=== PATIENT | female | born 1950 | race Caucasian/White ===

== ENCOUNTER 2018-04-14 12:50 | Inpatient (IN) ==
--- NOTE | 2018-04-14 13:58 | ED ---
HPI General Chief Complaint: Extremity Injury, Lower Stated Complaint: Fall Time Seen by Provider: 04/14/18 13:43 Source: patient and family Mode of arrival: wheelchair Limitations: no limitations History of Present Illness HPI Narrative: 68-year-old female presents the emergency room with her for evaluation of right groin pain for the past several days. Patient is a poor historian and her provides much of the history. He states 5 days ago she lost her balance and fell backwards landing right on her buttocks. She did not hit her head or lose consciousness. There were no other injuries. Patient was able to get up right away. States she seemed to be improving over the next few days but 2 days ago symptoms worsened. Today she was in the most amount of pain that she has been thus far. Her states he could barely get her out of the car without a wheelchair where she can typically walk with a walker around the grocery store. Patient reports pain localized to the right medial, proximal thigh that is worse with range of motion, ambulation, and when she pushes on it. No alleviating factors. Denies paresthesias. Patient only takes donepzil. complaint: Reports hip injury Onset (ago): day(s) Place: Reports home Severity: moderate Relieving factors: nothing Exacerbating factors: weight bearing, movement and palpation Context: Reports fall Other symptoms: Reports none Related Data Home Medications Medication Instructions Recorded Confirmed donepezil 10 mg PO DAILY 04/14/18 04/14/18 Allergies Allergy/AdvReac Type Severity Reaction Status Date / Time Penicillins Allergy Hives Verified 04/14/18 13:09 Review of Systems ROS: all other systems reviewed are negative [facility] Family History Family History Other Family history of breast cancer Hypertension Social History Social History Substance History: No History of Abuse Second Hand Smoke Exposure: No Smoking Status: Never smoker How Often Do You Have a Drink Containing Alcohol: Monthly or less Recent Travel in [facility] within the Last 8 Weeks: No Recent Out of Country Travel within the Last 8 Weeks: No Immunization History Tetanus Immunization: Unsure Exam Narrative Exam Narrative: GENERAL: Well-nourished, well-developed female no acute distress. Afebrile. SKIN: Focused skin assessment warm/dry. No obvious erythema or ecchymosis. HEAD: Normocephalic. EYES: No scleral icterus. No injection or drainage. NECK: Supple, trachea midline. No JVD or lymphadenopathy. CARDIOVASCULAR: Regular rate and rhythm without murmurs, gallops, or rubs. RESPIRATORY: Breath sounds equal bilaterally. No accessory muscle use. MUSCULOSKELETAL: No cyanosis, or edema. 2+ dorsalis pedis pulse on the right. No shortening or external rotation. Extreme pain with flexion and extension of the right hip. Tenderness palpation of the medial aspect of the right hip. Course Initial Documented Vital Signs Temperature 97.8 F 04/14/18 12:55 Pulse Rate 94 H 04/14/18 12:55 Respiratory Rate 20 04/14/18 12:55 Blood Pressure 156/64 H 04/14/18 12:55 Pulse Oximetry 97 04/14/18 12:55 Last Documented Vital Signs Temperature 98.3 F 04/15/18 16:00 Pulse Rate 70 04/15/18 12:00 Respiratory Rate 16 04/15/18 16:00 Blood Pressure 107/59 L 04/15/18 16:00 Pulse Oximetry 95 04/15/18 16:00 Medical Decision Making HAFSA Attestation HAFSA supervised visit: Yes Attestation: I, Dr. Wagner, have reviewed the advance practice practitioner's documentation and am in agreement, met with the patient face to face, made the diagnosis, and the medical decision making was done by me. *My assessment and Findings: Patient seen and examined by me in addition to Grecia Michelle, this 68-year-old female with subcapital femoral neck fracture with some mild impaction. I personally discussed the patient with Dr. Fraga, she would like to get a CAT scan to determine operative management whether that be minimally invasive fixation or hip replacement. Patient's pain seems fairly well controlled. Pulse motor and sensory are intact distally in all 4 extremities. She does have a history of dementia and is mildly confused. MDM Narrative Medical decision making narrative: 68-year-old female presents the emergency room with her for evaluation of right hip pain for the past 5 days after falling backwards on her buttocks. Patient has been ambulating on it but pain has been getting progressively worse over time. She denies any paresthesias. Physical exam reveals tenderness to palpation of the medial aspect of the right thigh. Pain is severe with any range of motion. There is no shortening or external rotation. 2+ dorsalis pedis pulse on the right. X- ray shows right subcapital femur neck fracture. My attending physician, Dr. Post, spoke to Dr. Fraga who plans to take patient to the OR for either pinning or total hip replacement. At this time IV access established and basic labs obtained. Preop EKG and chest x-ray ordered. Basic labs are essentially unremarkable. I spoke to Dr. Ortiz who agrees to accept this patient to his service. Medical Screen Exam Complete: Yes Emergency Medical Condition: Yes Differential Diagnosis Differential Diagnosis: Fracture, strain, contusion, muscle spasm Lab Data Result diagrams: 04/15/18 08:04 04/15/18 08:04 Lab Results 04/14/18 04/14/18 04/14/18 Range/Units 15:27 15:27 15:27 WBC 13.7 H (4.0-11.0) th/mm3 RBC 4.15 (4.00-5.30) mil/mm3 Hgb 13.4 (11.6-15.3) gm/dL Hct 38.4 (35.0-46.0) % MCV 92.6 (80.0-100.0) fL MCH 32.2 (27.0-34.0) pg MCHC 34.8 (32.0-36.0) % RDW 12.9 (11.6-17.2) % Plt Count 283 (150-450) th/mm3 MPV 8.3 (7.0-11.0) fL Neut % (Auto) 80.2 H (16.0-70.0) % Lymph % (Auto) 7.6 L (9.0-44.0) % Gem % (Auto) 11.9 H (0.0-8.0) % Eos % (Auto) 0.1 (0.0-4.0) % Baso % (Auto) 0.2 (0.0-2.0) % Neut # (Auto) 11.0 H (1.8-7.7) th/mm3 Lymph # (Auto) 1.0 (1.0-4.8) th/mm3 Gem # (Auto) 1.6 H (0.0-0.9) th/mm3 Eos # (Auto) 0.0 (0.0-0.4) th/mm3 Baso # (Auto) 0.0 (0.0-0.2) th/mm3 WBC Differential . Differential Comment Auto diff final PT 10.7 (9.8-11.6) sec INR 1.1 Ratio APTT 24.8 (23.4-31.7) sec Sodium 141 (136-145) meq/L Potassium 4.0 (3.5-5.1) meq/L Chloride 106 (98-107) meq/L Carbon Dioxide 28.6 (21.0-32.0) meq/L Anion Gap 6 (5-15) meq/L BUN 17 (7-18) mg/dL Creatinine 0.68 (0.50-1.00) mg/dL Estimated GFR 86 L (>89) mL/min Random Glucose 110 H (74-106) mg/dL Calcium 9.4 (8.5-10.1) mg/dL Total Bilirubin 1.3 H (0.2-1.0) mg/dL AST 22 (15-37) U/L ALT 18 (10-53) U/L Alkaline Phosphatase 51 (45-117) U/L Total Protein 7.6 (6.4-8.2) g/dL Albumin 3.6 (3.4-5.0) g/dL Urine Color (Yellw/Straw) Urine Clarity (Clear) Urine pH (5.0-8.5) Ur Specific Elysian (1.002-1.035) Urine Protein (Neg-Trace) mg/dL Urine Glucose (UA) (Negative) mg/dL Urine Ketones (Negative) mg/dL Urine Occult Blood (Negative) Urine Nitrate (Negative) Urine Bilirubin (Negative) Urine Urobilinogen (Less than 2) mg/dL Ur Leukocyte Esterase (Negative) Urine RBC (0-3) /hpf Urine WBC (0-5) /hpf Urine Mucus (Occasional) /lpf Ur Microscopic Review 04/14/18 04/15/18 04/15/18 Range/Units 15:28 08:04 08:04 WBC 9.6 (4.0-11.0) th/mm3 RBC 4.14 (4.00-5.30) mil/mm3 Hgb 13.3 (11.6-15.3) gm/dL Hct 38.2 (35.0-46.0) % MCV 92.3 (80.0-100.0) fL MCH 32.1 (27.0-34.0) pg MCHC 34.7 (32.0-36.0) % RDW 13.0 (11.6-17.2) % Plt Count 294 (150-450) th/mm3 MPV 8.3 (7.0-11.0) fL Neut % (Auto) 69.0 (16.0-70.0) % Lymph % (Auto) 14.0 (9.0-44.0) % Gem % (Auto) 14.9 H (0.0-8.0) % Eos % (Auto) 1.7 (0.0-4.0) % Baso % (Auto) 0.4 (0.0-2.0) % Neut # (Auto) 6.6 (1.8-7.7) th/mm3 Lymph # (Auto) 1.3 (1.0-4.8) th/mm3 Gem # (Auto) 1.4 H (0.0-0.9) th/mm3 Eos # (Auto) 0.2 (0.0-0.4) th/mm3 Baso # (Auto) 0.0 (0.0-0.2) th/mm3 WBC Differential . Differential Comment Auto diff final PT (9.8-11.6) sec INR Ratio APTT (23.4-31.7) sec Sodium 141 (136-145) meq/L Potassium 3.8 (3.5-5.1) meq/L Chloride 105 (98-107) meq/L Carbon Dioxide 28.4 (21.0-32.0) meq/L Anion Gap 8 (5-15) meq/L BUN 16 (7-18) mg/dL Creatinine 0.70 (0.50-1.00) mg/dL Estimated GFR 83 L (>89) mL/min Random Glucose 97 (74-106) mg/dL Calcium 8.8 (8.5-10.1) mg/dL Total Bilirubin (0.2-1.0) mg/dL AST (15-37) U/L ALT (10-53) U/L Alkaline Phosphatase (45-117) U/L Total Protein (6.4-8.2) g/dL Albumin (3.4-5.0) g/dL Urine Color Straw (Yellw/Straw) Urine Clarity Clear (Clear) Urine pH 6.0 (5.0-8.5) Ur Specific Elysian 1.005 (1.002-1.035) Urine Protein Negative (Neg-Trace) mg/dL Urine Glucose (UA) Negative (Negative) mg/dL Urine Ketones Trace H (Negative) mg/dL Urine Occult Blood Small H (Negative) Urine Nitrate Negative (Negative) Urine Bilirubin Negative (Negative) Urine Urobilinogen Less than 2 (Less than 2) mg/dL Ur Leukocyte Esterase Negative (Negative) Urine RBC 1 (0-3) /hpf Urine WBC Less than 1 (0-5) /hpf Urine Mucus Few H (Occasional) /lpf Ur Microscopic Review Not Reportable Imaging Data Radiologist's impression: Hip CT 04/14/18 00:00 CONCLUSION: 1. Impacted subcapital right femoral neck fracture. 2. 2.7 cm right adnexal cystic lesion, likely ovarian in etiology. This can be further evaluated with ultrasound on an outpatient basis as clinically appropriate. Hip X-Ray 04/14/18 13:51 CONCLUSION: Right subcapital femoral neck fracture. Chest X-Ray 04/14/18 15:14 CONCLUSION: No significant change compared to 07/21/2016. Hip X-Ray 04/15/18 00:00 CONCLUSION: Successful ORIF. Discharge Plan Discharge Disposition Patient Disposition: ED Admit(ED Internal Use Only) Discharge Order Discharge Orders: ED Use Only Admit Order (Routine); Ordered 04/14/18 Ordered By: Grecia Michelle Physicians Team ED Provider: Venkata Post ED Midlevel Provider: Grecia Michelle Primary Care Provider: Tonya Ruiz Attending Provider: Liya Polanco Other Providers: Jade Fraga Status ED Status: Left Department Discharge Information Discharge Date/Time: 04/14/18 19:01
--- NOTE | 2018-04-14 14:51 | XR ---
EXAM DATE: 04/14/2018 2:18 PM EST AGE/SEX: 68 years / Female INDICATIONS: Right hip pain, post fall. CLINICAL DATA: This is the patient's initial encounter. Patient reports that signs and symptoms have been present for 1 day and indicates a pain score of 7/10. MEDICAL/SURGICAL HISTORY: None. None. COMPARISON: No prior exams available for comparison. FINDINGS: There is a subcapital right femoral neck fracture. The femoral head is normally positioned in the jose francisco tabulum. No other fracture is seen. CONCLUSION: Right subcapital femoral neck fracture. Electronically signed by: Lon Oneil MD Board Certified Radiologist 04/14/2018 2:49 PM EST
[2018-04-14] MEDS ORDERED: Morphine Inj 4 MG/ML Vial IV.PUSH ONE (15:14)
[2018-04-14 15:54] LABS: Baso % (Auto) 0.2 % (0.0-2.0); Eos % (Auto) 0.1 % (0.0-4.0); Hematocrit 38.4 % (35.0-46.0); Hemoglobin 13.4 gm/dL (11.6-15.3); Lymph % (Auto) 7.6 % (9.0-44.0); Mean Corpuscular HGB Conc 34.8 % (32.0-36.0); Mean Corpuscular Hemoglobin 32.2 pg (27.0-34.0); Mean Corpuscular Volume 92.6 fL (80.0-100.0); Mean Platelet Volume 8.3 fL (7.0-11.0); Mono # (Auto) 1.6 th/mm3 (0.0-0.9); Mono % (Auto) 11.9 % (0.0-8.0); Neut % (Auto) 80.2 % (16.0-70.0); Platelet Count 283 th/mm3 (150-450); Red Blood Count 4.15 mil/mm3 (4.00-5.30); Red Cell Distribution Width 12.9 % (11.6-17.2); White Blood Count 13.7 th/mm3 (4.0-11.0)
[2018-04-14 16:01] LABS: Bilirubin,Urine Negative (Negative); Clarity,Urine Clear (Clear); Color,Urine Straw (Yellw/Straw); Glucose,Urine (UA) Negative (Negative); Leukocyte Esterase,Urine Negative (Negative); Mucus,Urine Few /lpf (Occasional); Nitrite,Urine Negative (Negative); Specific Gravity,Urine 1.005 (1.002-1.035)
[2018-04-14 16:07] LABS: Activated Partial Thrombo Time 24.8 sec (23.4-31.7); INR 1.1 Ratio; Prothrombin Time 10.7 sec (9.8-11.6)
--- NOTE | 2018-04-14 16:07 | XR ---
EXAM DATE: 04/14/2018 3:50 PM EST AGE/SEX: 68 years / Female INDICATIONS: History of fall, no chest complaints. CLINICAL DATA: This is the patient's initial encounter. Patient reports that signs and symptoms have been present for 1 day and indicates a pain score of 0/10. MEDICAL/SURGICAL HISTORY: None. None. COMPARISON: POI, XR CHEST PA AND LAT, 07/21/2016. . FINDINGS: The heart and mediastinal structures are stable. The lungs are hyperaerated. Increased interstitial d isease is noted bilaterally and is chronic. No focal alveolar consolidation is noted. Old healed frac tures of the left rib cage are noted. There has been no significant change compared to 07/21/2016. CONCLUSION: No significant change compared to 07/21/2016. Electronically signed by: Venkata Patel MD Board Certified Radiologist 04/14/2018 4:06 PM EST
[2018-04-14 16:14] LABS: Albumin 3.6 g/dL (3.4-5.0); Anion Gap 6 meq/L (5-15); Aspartate Aminotransferase 22 U/L (15-37); Blood Urea Nitrogen 17 mg/dL (7-18); Calcium 9.4 mg/dL (8.5-10.1); Carbon Dioxide 28.6 meq/L (21.0-32.0); Chloride 106 meq/L (98-107); Glomerular Filtration Rate 86 mL/min (>89); Glucose,Random 110 mg/dL (74-106); Sodium 141 meq/L (136-145)
[2018-04-14 16:15] LABS: Alanine Aminotransferase 18 U/L (10-53)
[2018-04-14 16:17] LABS: Alkaline Phosphatase 51 U/L (45-117); Total Protein 7.6 g/dL (6.4-8.2)
--- NOTE | 2018-04-14 17:12 | CT ---
EXAM DATE: 04/14/2018 4:30 PM EST AGE/SEX: 68 years / Female INDICATIONS: Trauma. Right hip pain status post fall five days ago. CLINICAL DATA: This is the patient's initial encounter. Patient reports that signs and symptoms have been present for 1 day and indicates a pain score of Nonresponsive. MEDICAL/SURGICAL HISTORY: Non-responsive. Non-responsive. RADIATION DOSE: 16.32 CTDI (mGy) COMPARISON: No prior exams available for comparison. TECHNIQUE: Multiple contiguous axial images were acquired using a multirow detector CT scanner witho ut contrast. Multiplanar reconstruction was performed in the sagittal and coronal planes. Using aut omated exposure control and adjustment of the mA and/or kV according to patient size, radiation dose was kept as low as reasonably achievable to obtain optimal diagnostic quality images. DICOM format i mage data is available electronically for review and comparison. FINDINGS: Bones: CT examination confirms findings on radiographs of an impacted subcapital right femoral neck fracture. Remaining visualized osseous structures appear intact. Joints: No significant arthropathy. Mild degenerative changes of the visualized lower lumbar spine. Soft Tissues: Unremarkable for a non-contrast study. Other: Moderate to large amount of stool in the rectal vault. 2.7 cm right adnexal cystic lesion, li debra ovarian in etiology. Bladder is unremarkable. CONCLUSION: 1. Impacted subcapital right femoral neck fracture. 2. 2.7 cm right adnexal cystic lesion, likely ovarian in etiology. This can be further evaluated wit h ultrasound on an outpatient basis as clinically appropriate. Electronically signed by: Lebron Arias MD Board Certified Radiologist 04/14/2018 5:11 PM ANDREA Rodriguez
[2018-04-14] MEDS ORDERED: Bisacodyl 10 MG Supp RECTAL PRN (17:54)
[2018-04-14] MEDS ORDERED: Morphine Inj 4 MG/ML Vial IV.PUSH PRN (17:57)
--- NOTE | 2018-04-14 18:11 | P.HPIM ---
History of Present Illness Primary Care Physician: Tonya Ruiz MD Chief Complaint: Hip fracture History of Present Illness: 68-year-old female with history of Warnicke's encephalopathy and dementia. She fell approximately 1 week ago and had a difficult time getting up from a seated position following that. She has had pain in her right hip but was able to ambulate with the assistance of her walker , using a walker at baseline anyway. Her pain became increasingly worse in her disability became more prominent. Her brought her in for evaluation of her hip, x-ray here reveals that she has a fracture of her right hip. Orthopedics was made aware and plans to take her to the OR for repair. Her denies that she ever had any history of alcoholism, the Warnicke's encephalopathy is the best fitting diagnosis based on multiple visits with multiple neurologist. The etiology of how that occurred is unclear but it does contribute to her dementia. She was given donepezil by her neurologist to address the dementia. She has no complaints of fever, no cough, no urinary tract symptoms, no nausea, vomiting, or diarrhea. Inpatient Certification Inpatient Certification: I certify that the inpatient services were ordered in accordance with Medicare regulations governing the order. This includes certification that hospital inpatient services are reasonable and necessary and in the case of services not specified as inpatient-only under 42 CFR 419.22(n), that they are appropriately provided as inpatient services in accordance to with the 2-midnight benchmark under 43 CFR 412.3(e) Estimated Total Length of Stay (Days): 4 Plans for Post Hospital Care: SNF Review of Systems Review of Systems: all other systems reviewed are negative [facility] Medical History Medical History Dementia (Acute) Wernickes encephalopathy (Acute) Family History Family History Other Hypertension Social History Social History Substance History: No History of Abuse Second Hand Smoke Exposure: No Smoking Status: Never smoker How Often Do You Have a Drink Containing Alcohol: Never Recent Travel in [place] within the Last 8 Weeks: No Recent Out of Country Travel within the Last 8 Weeks: No Immunization History Tetanus Immunization: Unsure Medications and Allergies Allergies Allergy/AdvReac Type Severity Reaction Status Date / Time Penicillins Allergy Hives Verified 04/14/18 13:09 Home Medications Medication Instructions Recorded Confirmed Type donepezil 10 mg PO DAILY 04/14/18 04/14/18 History Active Medications: Active Medications Acetaminophen (Tylenol) 650 mg PO Q4H PRN PRN Reason: Temp > 100.4 Al Hydroxide/Mg Hydroxide (Milk Of Magnesia Liq) 30 ml PO Q12H PRN PRN Reason: Mild Constipation Bisacodyl (Dulcolax Supp) 10 mg RECTAL DAILY PRN PRN Reason: SEVERE CONSITIPATION Sodium Chloride (Ns Inj) 1,000 mls @ 42 mls/hr IV.CONT .[id number] CIARA Lactulose (Lactulose Liq) 30 ml PO DAILY PRN PRN Reason: SEVERE CONSITIPATION Morphine Sulfate (Morphine Inj) 2 mg IV.PUSH Q4H PRN PRN Reason: Acute Pain Ondansetron HCl (Zofran Inj) 4 mg IV.PUSH Q6H PRN PRN Reason: NAUSEA OR VOMITING Sennosides (Senokot) 17.2 mg PO Q12H PRN PRN Reason: Moderate Constipation Sodium Chloride (Ns Flush) 2 ml IV.FLUSH UNSCH PRN PRN Reason: FLUSH AFTER USING IV ACCESS Sodium Chloride (Ns Flush) 2 ml IV.FLUSH BID CIARA Sodium Chloride (Ns Flush) 2 ml IV.FLUSH PRN PRN PRN Reason: FLUSH AFTER USING IV ACCESS Physical Exam Vital signs: Last Vital Signs Temp 97.8 F 04/14/18 12:55 Pulse 86 04/14/18 17:43 Resp 18 04/14/18 17:43 BP 143/76 H 04/14/18 17:43 Pulse Ox 97 04/14/18 15:35 Intake & Output 04/12/18 04/13/18 04/14/18 04/15/18 06:59 06:59 06:59 06:59 Weight 58.967 kg Narrative: GENERAL: AAOx2, no acute distress, adequate nutrition, lying still under blankets pain controlled SKIN: Warm and dry, no rashes. HEAD: Atraumatic. Normocephalic. EYES: Pupils equal, round, reactive to light. No scleral icterus. No injection or drainage. ENT: No nasal bleeding or discharge. Moist mucous membranes. Nonerythematous oropharynx. NECK: Trachea midline. No JVD. Thyroid size within normal limits. CARDIOVASCULAR: Regular rate and rhythm. No murmur, no gallops, no rubs. RESPIRATORY: Clear and equal to auscultation bilaterally. No crackles, no wheezes. No accessory muscle use. GASTROINTESTINAL: Abdomen soft, non-tender, nondistended, normal active bowel sounds. Hepatic and splenic margins not palpable. MUSCULOSKELETAL: Pain in right hip extremities without clubbing or cyanosis. No obvious deformities. No edema. NEUROLOGICAL: Awake and alert. No obvious cranial nerve deficits. Motor grossly within normal limits. No focal deficits. Five out of 5 muscle strength in the arms and legs. Normal speech. PSYCHIATRIC: Appropriate mood and affect; insight and judgment normal. Results Labs CBC & Chem 7: 04/14/18 15:27 04/14/18 15:[address] 04/14/18 00:00 CONCLUSION: 1. Impacted subcapital right femoral neck fracture. 2. 2.7 cm right adnexal cystic lesion, likely ovarian in etiology. This can be further evaluated with ultrasound on an outpatient basis as clinically appropriate. Hip X-Ray 04/14/18 13:51 CONCLUSION: Right subcapital femoral neck fracture. Chest X-Ray 04/14/18 15:14 CONCLUSION: No significant change compared to 07/21/2016. Caprini VTE Risk Assessment Caprini VTE Risk Assessment: Moderate/High Risk (score >= 2) Caprini Risk Assessment Model: Point Value = 1 Point Value = 2 Point Value = 3 Point Value = 5 Age 41-60 Minor surgery BMI > 25 kg/m2 Swollen legs Varicose veins or History of unexplained or recurrent spontaneous Oral contraceptives or hormone replacement Sepsis (< 1 month) Serious lung disease, including pneumonia (< 1 month) Abnormal pulmonary function Acute myocardial infarction Congestive heart failure (< 1 month) History of inflammatory bowel disease Medical patient at bed rest Age 61-74 Arthroscopic surgery Major open surgery (> 45 min) Laparoscopic surgery (> 45 min) Malignancy Confined to bed (> 72 hours) Immobilizing plaster cast Central venous access Age >= 75 History of VTE Family history of VTE Factor V Leiden Prothrombin [id number] Lupus anticoagulant Anticardiolipin antibodies Elevated serum homocysteine Heparin-induced thrombocytopenia Other congenital or acquired thrombophilia Stroke (< 1 month) Elective arthroplasty Hip, pelvis, or leg fracture Acute spinal cord injury (< 1 month) Prophylaxis Regimen: Total Risk Factor Score Risk Level Prophylaxis Regimen 0-1 Low Early ambulation 2 Moderate Order ONE of the following: *Sequential Compression Device (SCD) *Heparin 5000 units SQ BID 3-4 Higher Order ONE of the following medications: *Heparin 5000 units SQ TID *Enoxaparin/Lovenox 40 mg SQ daily (WT < 150 kg, CrCl > 30 mL/min) *Enoxaparin/Lovenox 30 mg SQ daily (WT < 150 kg, CrCl > 10-29 mL/min) *Enoxaparin/Lovenox 30 mg SQ BID (WT < 150 kg, CrCl > 30 mL/min) AND/OR *Sequential Compression Device (SCD) 5 or more Highest Order ONE of the following medications: *Heparin 5000 units SQ TID (Preferred with Epidurals) *Enoxaparin/Lovenox 40 mg SQ daily (WT < 150 kg, CrCl > 30 mL/min) *Enoxaparin/Lovenox 30 mg SQ daily (WT < 150 kg, CrCl > 10-29 mL/min) *Enoxaparin/Lovenox 30 mg SQ BID (WT < 150 kg, CrCl > 30 mL/min) AND *Sequential Compression Device (SCD) Assessment and Plan Plan Right hip fracture Right subcapital femoral neck fracture Orthopedics is aware and plans to repair with surgery Continue morphine 2 mg as needed for pain control N.p.o. after midnight Appreciate orthopedics consult Warnicke's encephalopathy Best fitting diagnosis, there is no history of alcoholism Possibly related to be vitamin absorption deficiency from GI or robbie imbalance Continue multivitamin daily, thiamine Dementia Secondary to decline from Warnicke's encephalopathy Continue donepezil 10 mg daily DVT prophylaxis SCDs, surgery in the a.m. Discharge planning She will likely need a rehab center
[2018-04-14] MEDS: Sod Chloride 0.9% Inj 1,000 ML IV.CONT SCH (18:37)
[2018-04-14] MEDS ORDERED: Chlorhexidine Gluconate 2% 1 Pack (2 Cloths) TOPICAL ONE (23:00)
[2018-04-14] MEDS ORDERED: Sodium Chlor 0.9% Inj 500 ML IV.CONT ONE (23:00)
--- NOTE | 2018-04-15 06:44 | P.CONOP ---
[facility] Orthopedics Consult Note - [facility] Consult date: 04/15/18 Chief complaint: Right femoral neck fx Narrative: 68-year-old female with history of Warnicke's encephalopathy and dementia. She fell approximately 1 week ago and had a difficult time getting up from a seated position following that. She has had pain in her right hip but was able to ambulate with the assistance of her walker, using a walker at baseline anyway. Her pain became increasingly worse in her disability became more prominent. Her brought her in for evaluation of her hip, x-ray here reveals that she has a fracture of her right hip. Orthopedics was made aware and plans to take her to the OR for repair. Her denies that she ever had any history of alcoholism, the Warnicke's encephalopathy is the best fitting diagnosis based on multiple visits with multiple neurologist. The etiology of how that occurred is unclear but it does contribute to her dementia. She was given donepezil by her neurologist to address the dementia. She has no complaints of fever, no cough, no urinary tract symptoms, no nausea, vomiting, or diarrhea. Currently she only complains of right hip pain otherwise doing well. Review of Systems Denies fevers, chills, nausea, vomiting. Denies chest pain, cough, shortness of breath. Denies abdominal pain or change in urination. Denies back pain, weakness, numbness or tingling. Denies dizziness, blurry vision or throat pain. Reports baseline dementia. Reports right hip pain PMFSH - History History Provided By: Patient - Medical History Medical History: Medical History (Last Reviewed 04/14/18 @ 20:12 by Ailyn Rubalcava RN) Dementia Wernickes encephalopathy - Surgical History Surgical History: Surgical History (Last Updated 04/14/18 @ 20:12 by Ailyn Rubalcava RN) No history of previous surgery - Family History Family History: Family History (Last Updated 04/14/18 @ 20:13 by Ailyn Rubalcava RN) Other Family history of breast cancer Hypertension - Tobacco History Second Hand Smoke Exposure: No Tobacco Use In Past 30 Days: No Smoking Status: Never smoker - Alcohol History How Often Do You Have a Drink Containing Alcohol: Monthly or less - Substance Use History Substance History: No History of Abuse - Travel History Recent Travel in the [place] Within the Last 8 Weeks: No Recent Travel Out of the Country Within the Last 8 Weeks: No - Immunization History Tetanus Immunization: Unsure Hx Influenza Vaccine This Season: Yes Medications and Allergies Active Medications: Active Medications Acetaminophen (Tylenol) 650 mg PO Q4H PRN PRN Reason: Temp > 100.4 Al Hydroxide/Mg Hydroxide (Milk Of Magnesia Liq) 30 ml PO Q12H PRN PRN Reason: Mild Constipation Bisacodyl (Dulcolax Supp) 10 mg RECTAL DAILY PRN PRN Reason: SEVERE CONSITIPATION Donepezil HCl (Aricept) 10 mg PO DAILY [facility] Sodium Chloride (Ns Inj) 1,000 mls @ 42 mls/hr IV.CONT .[id number] [facility] Last Admin: 04/14/18 18:37 Dose: 42 mls/hr Lactated Ringer's (Lr 1000 Ml Inj) 1,000 mls @ 30 mls/hr IV.CONT .Q24H ONE Stop: 04/15/18 22:59 Sodium Chloride (Ns Inj) 500 mls @ 30 mls/hr IV.CONT .[id number] ONE Stop: 04/15/18 15:39 Lactulose (Lactulose Liq) 30 ml PO DAILY PRN PRN Reason: SEVERE CONSITIPATION Morphine Sulfate (Morphine Inj) 2 mg IV.PUSH Q4H PRN PRN Reason: Acute Pain Multivitamins (Theragran) 1 tab PO DAILY [facility] Ondansetron HCl (Zofran Inj) 4 mg IV.PUSH Q6H PRN PRN Reason: NAUSEA OR VOMITING Sennosides (Senokot) 17.2 mg PO Q12H PRN PRN Reason: Moderate Constipation Sodium Chloride (Ns Flush) 2 ml IV.FLUSH BID [facility] Last Admin: 04/14/18 20:21 Dose: Not Given Sodium Chloride (Ns Flush) 2 ml IV.FLUSH PRN PRN PRN Reason: FLUSH AFTER USING IV ACCESS Thiamine HCl (Vitamin B1) 100 mg PO BID [facility] Last Admin: 04/14/18 20:21 Dose: 100 mg Allergies Allergy/AdvReac Type Severity Reaction Status Date / Time Penicillins Allergy Hives Verified 04/14/18 13:09 Home Medications Medication Instructions Recorded Confirmed Type donepezil 10 mg PO DAILY 04/14/18 04/14/18 History Exam Vital signs: Vital Signs 04/14/18 12:55 04/14/18 15:35 04/14/18 15:47 Temperature 97.8 F Pulse Rate 94 H 78 Respiratory Rate 20 18 18 Blood Pressure 156/64 H 154/67 H Pulse Oximetry 97 97 04/14/18 17:43 04/14/18 18:33 04/14/18 19:20 Temperature 98 F Pulse Rate 86 70 75 Respiratory Rate 18 18 18 Blood Pressure 143/76 H 120/55 L 136/64 Pulse Oximetry 96 95 04/14/18 23:32 04/15/18 03:55 Temperature 97.7 F 97.9 F Pulse Rate 81 81 Respiratory Rate 18 Blood Pressure 121/56 L 124/54 L Pulse Oximetry 94 L 94 L Intake & Output 04/14/18 04/14/18 04/15/18 06:59 18:59 06:59 Intake Total 0 / 0 Balance 0 / 0 Weight 58.967 kg 59.1 kg Intake: Oral 0 / 0 Other: # Voids 1 Date of Last Bowel Movement 04/14/18 # Bowel Movements 0 Weight On Admission 59.1 kg Narrative: Awake, alert, no acute distress Normocephalic Pupils equal No JVD Moist mucous membranes Nonlabored respirations Soft nontender abdomen Regular rate Right upper extremity: No tenderness to palpation or visible deformities. Full active range of motion and strength throughout. Sensation intact. Brisk cap refill. Left upper extremity:No tenderness to palpation or visible deformities. Full active range of motion and strength throughout. Sensation intact. Brisk cap refill. Right lower extremity: Positive logroll. Unable to assess hip and knee range of motion due to discomfort. Positive EHL, FHL, dorsiflexion and plantar flexion. Sensation appears intact. Negative Homans. Brisk cap refill. Left lower extremity:No tenderness to palpation or visible deformities. Full active range of motion and strength throughout. Sensation intact. Brisk cap refill. No rash Normal affect Results - Labs Result Diagrams: 04/14/18 15:27 04/14/18 15:27 Labs: Laboratory Results - last 24 hr 04/14/18 04/14/18 04/14/18 15:27 15:27 15:27 WBC 13.7 H RBC 4.15 Hgb 13.4 Hct 38.4 MCV 92.6 MCH 32.2 MCHC 34.8 RDW 12.9 Plt Count 283 MPV 8.3 Neut % (Auto) 80.2 H Lymph % (Auto) 7.6 L [place] % (Auto) 11.9 H Eos % (Auto) 0.1 Baso % (Auto) 0.2 Neut # (Auto) 11.0 H Lymph # (Auto) 1.0 [place] # (Auto) 1.6 H Eos # (Auto) 0.0 Baso # (Auto) 0.0 WBC Differential . Differential Comment Auto diff final PT 10.7 INR 1.1 APTT 24.8 Sodium 141 Potassium 4.0 Chloride 106 Carbon Dioxide 28.6 Anion Gap 6 BUN 17 Creatinine 0.68 Estimated GFR 86 L Random Glucose 110 H Calcium 9.4 Total Bilirubin 1.3 H AST 22 ALT 18 Alkaline Phosphatase 51 Total Protein 7.6 Albumin 3.6 Urine Color Urine Clarity Urine pH Ur Specific [place] Urine Protein Urine Glucose (UA) Urine Ketones Urine Occult Blood Urine Nitrate Urine Bilirubin Urine Urobilinogen Ur Leukocyte Esterase Urine RBC Urine WBC Urine Mucus Ur Microscopic Review 04/14/18 15:28 WBC RBC Hgb Hct MCV MCH MCHC RDW Plt Count MPV Neut % (Auto) Lymph % (Auto) [place] % (Auto) Eos % (Auto) Baso % (Auto) Neut # (Auto) Lymph # (Auto) [place] # (Auto) Eos # (Auto) Baso # (Auto) WBC Differential Differential Comment PT INR APTT Sodium Potassium Chloride Carbon Dioxide Anion Gap BUN Creatinine Estimated GFR Random Glucose Calcium Total Bilirubin AST ALT Alkaline Phosphatase Total Protein Albumin Urine Color Straw Urine Clarity Clear Urine pH 6.0 Ur Specific [place] 1.005 Urine Protein Negative Urine Glucose (UA) Negative Urine Ketones Trace H Urine Occult Blood Small H Urine Nitrate Negative Urine Bilirubin Negative Urine Urobilinogen Less than 2 Ur Leukocyte Esterase Negative Urine RBC 1 Urine WBC Less than 1 Urine Mucus Few H Ur Microscopic Review Not Reportable - Diagnostic results Imaging: Impressions Hip CT 04/14/18 00:00 CONCLUSION: 1. Impacted subcapital right femoral neck fracture. 2. 2.7 cm right adnexal cystic lesion, likely ovarian in etiology. This can be further evaluated with ultrasound on an outpatient basis as clinically appropriate. Hip X-Ray 04/14/18 13:51 CONCLUSION: Right subcapital femoral neck fracture. Chest X-Ray 04/14/18 15:14 CONCLUSION: No significant change compared to 07/21/2016. Assessment and Plan - Assessment and Plan 68-year-old female with closed impacted right subcapital femoral neck fracture Radiographs and CT scan reviewed by myself and with the patient. She does have a right femoral neck fracture which appears valgus impacted. I discussed options of management with the patient. I explained to the patient that nonoperative management is typically not a reliable option as it predisposes the patient to prolonged periods in bed and places her at risk for pneumonias, blood clots, urinary tract infections, skin breakdown leading to ulcers and even . Typically surgery is used to try to fix these fractures. I discussed surgery in the form of percutaneous fixation of her right femoral neck fracture versus right hip hemiarthroplasty. Risks, benefits, alternatives were discussed with the patient regarding both of the surgical options. I explained to the patient that typically with percutaneous fixation there is higher risk of nonunion or hardware failure which could require further surgery although this surgery initially is much smaller with lower risk of blood loss. Patient is interested in pursuing percutaneous fixation of her right hip fracture. Patient has been n.p.o. since midnight with plan for surgery this morning. Postoperative course was discussed with the patient. She will be limited weightbearing for at least the first several weeks postoperatively.
[2018-04-15] MEDS ORDERED: ceFAZolin 1 GM Premix Inj 1 GM/50 ML PIGGYBACK IV.SIG ONE (08:31)
[2018-04-15 08:44] LABS: Baso % (Auto) 0.4 % (0.0-2.0); Eos # (Auto) 0.2 th/mm3 (0.0-0.4); Eos % (Auto) 1.7 % (0.0-4.0); Hematocrit 38.2 % (35.0-46.0); Hemoglobin 13.3 gm/dL (11.6-15.3); Lymph # (Auto) 1.3 th/mm3 (1.0-4.8); Mean Corpuscular HGB Conc 34.7 % (32.0-36.0); Mean Corpuscular Hemoglobin 32.1 pg (27.0-34.0); Mean Corpuscular Volume 92.3 fL (80.0-100.0); Mean Platelet Volume 8.3 fL (7.0-11.0); Mono # (Auto) 1.4 th/mm3 (0.0-0.9); Mono % (Auto) 14.9 % (0.0-8.0); Neut # (Auto) 6.6 th/mm3 (1.8-7.7); Platelet Count 294 th/mm3 (150-450); Red Blood Count 4.14 mil/mm3 (4.00-5.30); White Blood Count 9.6 th/mm3 (4.0-11.0)
[2018-04-15 09:00] LABS: Calcium 8.8 mg/dL (8.5-10.1); Carbon Dioxide 28.4 meq/L (21.0-32.0); Potassium 3.8 meq/L (3.5-5.1)
--- NOTE | 2018-04-15 09:22 | P.OP ---
Date of procedure: 04/15/18 Procedure: Percutaneous fixation right femoral neck fracture Implants: Synthes 7.3mm cannulated screws Anesthesia: GETA Surgeon: Jade Fraga MD Estimated blood loss (mL): 10 Pathology: none sent Operation and Findings: Indications for procedure: Patient is a 68-year-old female who had a fall approximately 1 week prior to presentation with acute onset of right hip pain but patient was initially able to ambulate. Over the last week she is noticed progressing difficulty with ambulation. Patient was found to have a closed right impacted femoral neck fracture. Options of management reviewed with the patient and her . Risks, benefits, and alternatives were reviewed. Risks of surgery were discussed. At this time the patient and her consented to the above-mentioned procedure. Description of procedure: Patient was brought back to the operating room where general anesthesia then ensued. Patient was then carefully positioned supine on the operating room fracture table with all bony promises well-padded. Antibiotics were given within 1 hour of incision. A timeout was performed to addendum for the correct patient, side, site and procedure to be performed. The femoral neck fracture was found to be impacted and within acceptable alignment with slight valgus angulation. A small incision was made over the proximal lateral aspect of the femur with sharp dissection through the skin, subcutaneous tissue and fascia. A guidewire was placed just proximal to the lesser trochanter on the lateral aspect of the femur and advanced through the center of the femoral neck in the inferior aspect and into the femoral head. 2 more guidewires were 7.3 mm cannulated screws were then placed more proximally with one being in the posterior aspect of the femoral neck and one in the anterior aspect of the femoral neck. These were advanced into the femoral head in appropriate position. These were subsequently directed, the near cortex drilled and appropriately length of 7.3 mm cannulated screw placed over each of the guidewires. These were final tightened. The guidewires were removed. Final radiographs demonstrated the fracture was in acceptable alignment and hardware was in good position. The wound was thoroughly irrigated with normal saline laden with antibiotics. The fascia was closed with Vicryl sutures along with his obtain his tissue. The skin was then closed with tsering and sterile dressings applied. Patient was then carefully transitioned off of the operating room fracture table and onto her hospital bed. Patient was awoken from general anesthesia without complication. Disposition: Patient will be toe-touch weightbearing to the right lower extremity.
[2018-04-15] MEDS ORDERED: Post-op Orders (for Pharmacy) OTHER STA (09:23)
[2018-04-15] MEDS ORDERED: fentaNYL Citrate Inj 100 MCG/2 ML Ampul ONE (09:44)
[2018-04-15] MEDS ORDERED: Morphine Inj 4 MG/ML Vial ONE (09:44)
--- NOTE | 2018-04-15 09:53 | XR ---
EXAM DATE: 04/15/2018 9:39 AM EST AGE/SEX: 68 years / Female INDICATIONS: Right hip pinning. CLINICAL DATA: This is the patient's initial encounter. Patient reports that signs and symptoms have been present for 1 day and indicates a pain score of Nonresponsive. MEDICAL/SURGICAL HISTORY: Non-responsive. Non-responsive. COMPARISON: C, HIP RIGHT W AP PELVIS 2V, 04/14/2018. . FINDINGS: 2 images from the OR have been submitted. There are 3 screws extending through the right femoral neck and into the right femoral head. These are well placed. The previously seen right femoral neck fract ure has been successfully reduced. CONCLUSION: Successful ORIF. Electronically signed by: Lon Oneil MD Board Certified Radiologist 04/15/2018 9:52 AM EST
--- NOTE | 2018-04-15 15:26 | P.PN ---
Subjective Interval history: Follow-up visit for right hip fracture. Patient is seen and examined sitting up in bed eating with at bedside. She denies any pain at the moment. Denies any cough, shortness of breath, nausea or vomiting. Discussed with she will likely need rehab, will touch base with showcase maker for list of rehab centers to plan for discharge. Physical Exam Vital signs: Vital Signs 04/14/18 15:35 04/14/18 15:47 04/14/18 17:43 Temperature Pulse Rate 78 86 Respiratory Rate 18 18 18 Blood Pressure 154/67 H 143/76 H Pulse Oximetry 97 04/14/18 18:33 04/14/18 19:20 04/14/18 23:32 Temperature 98 F 97.7 F Pulse Rate 70 75 81 Respiratory Rate 18 18 18 Blood Pressure 120/55 L 136/64 121/56 L Pulse Oximetry 96 95 94 L 04/15/18 03:55 04/15/18 08:00 04/15/18 09:30 Temperature 97.9 F 99 F Pulse Rate 81 80 71 Respiratory Rate 18 16 12 Blood Pressure 124/54 L 120/58 L Pulse Oximetry 94 L 97 100 04/15/18 09:31 04/15/18 12:00 Temperature 98.9 F 97.6 F Pulse Rate 70 70 Respiratory Rate 12 16 Blood Pressure 115/54 L 112/57 L Pulse Oximetry 100 96 Intake & Output 04/14/18 04/15/18 04/15/18 18:59 06:59 18:59 Intake Total 0 / 0 1000 / 1000 Output Total 150 / 150 Balance 0 / 0 850 / 850 Weight 58.967 kg 59.1 kg Intake: Oral 0 / 0 Anesthesia Amount 1000 / 1000 Output: Estimated Blood Loss 150 / 150 Other: # Voids 1 Date of Last Bowel Movement 04/14/18 # Bowel Movements 0 Weight On Admission 59.1 kg Narrative: GENERAL: Well-developed, well-nourished female sitting up in bed in no acute distress. SKIN: Warm and dry. HEAD: Atraumatic. Normocephalic. EYES: Pupils equal and round. No scleral icterus. No injection or drainage. ENT: No nasal bleeding or discharge. Mucous membranes pink and moist. NECK: Trachea midline. No JVD. CARDIOVASCULAR: Regular rate and rhythm. RESPIRATORY: No accessory muscle use. Clear to auscultation. Breath sounds equal bilaterally. GASTROINTESTINAL: Abdomen soft, non-tender, nondistended. + Bowel sounds MUSCULOSKELETAL: Extremities without clubbing, cyanosis, or edema. No obvious deformities. Right hip dressing dry and intact. Right pedal pulse present, foot warm, positive sensation and movement. NEUROLOGICAL: Awake, alert, oriented x1. No obvious cranial nerve deficits. Motor grossly within normal limits. 4/5 muscle strength in the arms and legs. Normal speech. PSYCHIATRIC: poor insight and judgment. Results - Labs CBC & Chem 7: 04/15/18 08:04 04/15/18 08:04 Laboratory Results - last 24 hr 04/14/18 04/14/18 04/14/18 15:27 15:27 15:27 WBC 13.7 H RBC 4.15 Hgb 13.4 Hct 38.4 MCV 92.6 MCH 32.2 MCHC 34.8 RDW 12.9 Plt Count 283 MPV 8.3 Neut % (Auto) 80.2 H Lymph % (Auto) 7.6 L [place] % (Auto) 11.9 H Eos % (Auto) 0.1 Baso % (Auto) 0.2 Neut # (Auto) 11.0 H Lymph # (Auto) 1.0 [place] # (Auto) 1.6 H Eos # (Auto) 0.0 Baso # (Auto) 0.0 WBC Differential . Differential Comment Auto diff final PT 10.7 INR 1.1 APTT 24.8 Sodium 141 Potassium 4.0 Chloride 106 Carbon Dioxide 28.6 Anion Gap 6 BUN 17 Creatinine 0.68 Estimated GFR 86 L Random Glucose 110 H Calcium 9.4 Total Bilirubin 1.3 H AST 22 ALT 18 Alkaline Phosphatase 51 Total Protein 7.6 Albumin 3.6 Urine Color Urine Clarity Urine pH Ur Specific [place] Urine Protein Urine Glucose (UA) Urine Ketones Urine Occult Blood Urine Nitrate Urine Bilirubin Urine Urobilinogen Ur Leukocyte Esterase Urine RBC Urine WBC Urine Mucus Ur Microscopic Review 04/14/18 04/15/18 04/15/18 15:28 08:04 08:04 WBC 9.6 RBC 4.14 Hgb 13.3 Hct 38.2 MCV 92.3 MCH 32.1 MCHC 34.7 RDW 13.0 Plt Count 294 MPV 8.3 Neut % (Auto) 69.0 Lymph % (Auto) 14.0 [place] % (Auto) 14.9 H Eos % (Auto) 1.7 Baso % (Auto) 0.4 Neut # (Auto) 6.6 Lymph # (Auto) 1.3 [place] # (Auto) 1.4 H Eos # (Auto) 0.2 Baso # (Auto) 0.0 WBC Differential . Differential Comment Auto diff final PT INR APTT Sodium 141 Potassium 3.8 Chloride 105 Carbon Dioxide 28.4 Anion Gap 8 BUN 16 Creatinine 0.70 Estimated GFR 83 L Random Glucose 97 Calcium 8.8 Total Bilirubin AST ALT Alkaline Phosphatase Total Protein Albumin Urine Color Straw Urine Clarity Clear Urine pH 6.0 Ur Specific [place] 1.005 Urine Protein Negative Urine Glucose (UA) Negative Urine Ketones Trace H Urine Occult Blood Small H Urine Nitrate Negative Urine Bilirubin Negative Urine Urobilinogen Less than 2 Ur Leukocyte Esterase Negative Urine RBC 1 Urine WBC Less than 1 Urine Mucus Few H Ur Microscopic Review Not Reportable - Imaging Impressions Hip CT 04/14/18 00:00 CONCLUSION: 1. Impacted subcapital right femoral neck fracture. 2. 2.7 cm right adnexal cystic lesion, likely ovarian in etiology. This can be further evaluated with ultrasound on an outpatient basis as clinically appropriate. Chest X-Ray 04/14/18 15:14 CONCLUSION: No significant change compared to 07/21/2016. Hip X-Ray 04/15/18 00:00 CONCLUSION: Successful ORIF. Assessment and Plan - Plan Right hip fracture Right subcapital femoral neck fracture -Orthotic consulted. Underwent percutaneous fixation of right femur neck fracture 04/[address] Sevilla -Pain control with p.o. Starbuck, IV morphine for breakthrough pain. -PT consulted for evaluation -Hip precautions per orthopedic recommendations. Warnicke's encephalopathy -history of alcoholism -Possibly related to be vitamin absorption deficiency from GI or robbie imbalance -Continue multivitamin daily, thiamine Dementia -Secondary to decline from Warnicke's encephalopathy -Continue donepezil 10 mg daily DVT prophylaxisLovenox Discussed Condition With: Patient, RN, , showcase maker. Discharge Planning: Likely need retirement facility for rehab once cleared for discharge by orthopedic services.
[2018-04-15] MEDS: ceFAZolin 1 GM Premix Inj 1 GM/50 ML PIGGYBACK IV.SIG SCH (17:29)
[2018-04-15] MEDS: Sod Chloride 0.9% Inj 1,000 ML IV.CONT SCH (19:28)
[2018-04-16] MEDS: ceFAZolin 1 GM Premix Inj 1 GM/50 ML PIGGYBACK IV.SIG SCH ×2 (00:17→10:00)
--- NOTE | 2018-04-16 01:28 | ECG ---
Date Performed: 04/14/2018 Time Performed: 15:22:18 PTAGE: 68 years EKG: Sinus rhythm NORMAL ECG NO PREVIOUS TRACING DOCTOR: Chang Taylor Interpretating Date/Time 04/16/2018 01:26:55
--- NOTE | 2018-04-16 06:47 | P.PNOP ---
Subjective Interval history: Patient resting comfortably. States her pain is relatively well controlled Physical Exam Vital signs: Vital Signs 04/15/18 08:00 04/15/18 09:30 04/15/18 09:31 Temperature 99 F 98.9 F Pulse Rate 80 71 70 Respiratory Rate 16 12 12 Blood Pressure 120/58 L 115/54 L Pulse Oximetry 97 100 100 04/15/18 09:45 04/15/18 10:00 04/15/18 10:15 Temperature Pulse Rate 69 84 77 Respiratory Rate 22 20 23 Blood Pressure 119/59 L 110/56 L 102/53 L Pulse Oximetry 95 100 97 04/15/18 12:00 04/15/18 16:00 04/15/18 20:00 Temperature 97.6 F 98.3 F 98.3 F Pulse Rate 70 78 Respiratory Rate 16 16 17 Blood Pressure 112/57 L 107/59 L 114/54 L Pulse Oximetry 96 95 95 04/16/18 00:43 04/16/18 03:57 Temperature 97.7 F 97.6 F Pulse Rate 68 73 Respiratory Rate 16 17 Blood Pressure 115/67 118/60 Pulse Oximetry 95 96 Intake & Output 04/15/18 04/15/18 04/16/18 06:59 18:59 06:59 Intake Total 0 / 0 3530 / 3530 50 / 50 Output Total 150 / 150 Balance 0 / 0 3380 / 3380 50 / 50 Weight 59.1 kg 61.6 kg Intake: IV 1050 / 1050 50 / 50 NS Inj 1,000 ML @ 42 mls/hr IV. 1000 / 1000 CONT .[id number] [facility] Rx#:[id number] Ancef 1 GM Premix Inj 1 gm In 50 / 50 50 / 50 50 ml @ 100 mls/hr IV.SIG Q8H [facility] Rx#:[id number] Oral 0 / 0 1480 / 1480 Anesthesia Amount 1000 / 1000 Output: Estimated Blood Loss 150 / 150 Other: # Voids 1 3 # Incontinent Voids 3 Date of Last Bowel Movement 04/14/18 04/14/18 04/14/18 # Bowel Movements 0 0 Weight On Admission 59.1 kg Narrative: Sleeping but arousable Right lower extremity: Dressing in place over right hip. No significant drainage. Negative Homans. Neurovascular intact distally. Results - Labs CBC & Chem 7: 04/15/18 08:04 04/15/18 08:04 Laboratory Results - last 24 hr 04/15/18 04/15/18 08:04 08:04 WBC 9.6 RBC 4.14 Hgb 13.3 Hct 38.2 MCV 92.3 MCH 32.1 MCHC 34.7 RDW 13.0 Plt Count 294 MPV 8.3 Neut % (Auto) 69.0 Lymph % (Auto) 14.0 [place] % (Auto) 14.9 H Eos % (Auto) 1.7 Baso % (Auto) 0.4 Neut # (Auto) 6.6 Lymph # (Auto) 1.3 [place] # (Auto) 1.4 H Eos # (Auto) 0.2 Baso # (Auto) 0.0 WBC Differential . Differential Comment Auto diff final Sodium 141 Potassium 3.8 Chloride 105 Carbon Dioxide 28.4 Anion Gap 8 BUN 16 Creatinine 0.70 Estimated GFR 83 L Random Glucose 97 Calcium 8.8 - Imaging Impressions Hip X-Ray 04/15/18 00:00 CONCLUSION: Successful ORIF. Assessment and Plan - Assessment and Plan 68-year-old female with closed impacted right subcapital femoral neck fracture, postop day 1 status post ORIF right hip 1. Toe-touch weightbearing right lower extremity 2. Physical therapy for mobilization 3. Lovenox for DVT prophylaxis while inpatient. May switch to Xarelto for 3 weeks upon discharge 4. Okay to start dressing changes on postop day 2. 5. Follow-up in clinic in 2 weeks. Okay for discharge from orthopedic standpoint.
--- NOTE | 2018-04-16 08:34 | P.PN ---
Subjective Interval history: Follow-up visit for right femur fracture and dementia. Patient seen and examined sitting up in bed in no acute distress eating breakfast. Denies any pain, fevers, chills, nausea or vomiting. We will advance diet to regular food , H&H this morning stable. Physical Exam Vital signs: Vital Signs 04/15/18 09:30 04/15/18 09:31 04/15/18 09:45 Temperature 98.9 F Pulse Rate 71 70 69 Respiratory Rate 12 04 14 Blood Pressure 115/54 L 119/59 L Pulse Oximetry 100 100 95 04/15/18 10:00 04/15/18 10:15 04/15/18 12:00 Temperature 97.6 F Pulse Rate 84 77 70 Respiratory Rate 20 23 16 Blood Pressure 110/56 L 102/53 L 112/57 L Pulse Oximetry 100 97 96 04/15/18 16:00 04/15/18 20:00 04/16/18 00:43 Temperature 98.3 F 98.3 F 97.7 F Pulse Rate 78 68 Respiratory Rate 16 17 16 Blood Pressure 107/59 L 114/54 L 115/67 Pulse Oximetry 95 95 95 04/16/18 03:57 Temperature 97.6 F Pulse Rate 73 Respiratory Rate 17 Blood Pressure 118/60 Pulse Oximetry 96 Intake & Output 04/15/18 04/16/18 04/16/18 18:59 06:59 18:59 Intake Total 3530 / 3530 50 / 50 Output Total 150 / 150 Balance 3380 / 3380 50 / 50 Weight 61.6 kg Intake: IV 1050 / 1050 50 / 50 NS Inj 1,000 ML @ 42 mls/hr IV. 1000 / 1000 CONT .[id number] CIARA Rx#:[id number] Ancef 1 GM Premix Inj 1 gm In 50 / 50 50 / 50 50 ml @ 100 mls/hr IV.SIG Q8H CIARA Rx#:[id number] Oral 1480 / 1480 Anesthesia Amount 1000 / 1000 Output: Estimated Blood Loss 150 / 150 Other: # Voids 3 # Incontinent Voids 3 Date of Last Bowel Movement 04/14/18 04/14/18 # Bowel Movements 0 Narrative: GENERAL: Well-developed, well-nourished female sitting up in bed in no acute distress. SKIN: Warm and dry. HEAD: Atraumatic. Normocephalic. EYES: Pupils equal and round. No scleral icterus. No injection or drainage. ENT: No nasal bleeding or discharge. Mucous membranes pink and moist. NECK: Trachea midline. CARDIOVASCULAR: Regular rate and rhythm. RESPIRATORY: No accessory muscle use. Clear to auscultation. Breath sounds equal bilaterally. GASTROINTESTINAL: Abdomen soft, non-tender, nondistended. + Bowel sounds MUSCULOSKELETAL: Extremities without clubbing, cyanosis, or edema. No obvious deformities. Right hip dressing dry and intact. Right pedal pulse present, foot warm, positive sensation and movement. NEUROLOGICAL: Awake, alert, oriented x1. No obvious cranial nerve deficits. Motor grossly within normal limits. Normal speech. PSYCHIATRIC: poor insight and judgment. Results - Labs CBC & Chem 7: 04/16/18 08:58 04/15/18 08:04 Laboratory Results - last 24 hr 04/15/18 04/15/18 08:04 08:04 WBC 9.6 RBC 4.14 Hgb 13.3 Hct 38.2 MCV 92.3 MCH 32.1 MCHC 34.7 RDW 13.0 Plt Count 294 MPV 8.3 Neut % (Auto) 69.0 Lymph % (Auto) 14.0 [place] % (Auto) 14.9 H Eos % (Auto) 1.7 Baso % (Auto) 0.4 Neut # (Auto) 6.6 Lymph # (Auto) 1.3 [place] # (Auto) 1.4 H Eos # (Auto) 0.2 Baso # (Auto) 0.0 WBC Differential . Differential Comment Auto diff final Sodium 141 Potassium 3.8 Chloride 105 Carbon Dioxide 28.4 Anion Gap 8 BUN 16 Creatinine 0.70 Estimated GFR 83 L Random Glucose 97 Calcium 8.8 - Imaging Impressions Hip X-Ray 04/15/18 00:00 CONCLUSION: Successful ORIF. Assessment and Plan - Plan Right hip fracture Right subcapital femoral neck fracture -Orthotic consulted. Underwent percutaneous fixation of right femur neck fracture 04/[address] Sevilla -Pain control with p.o. Warren, IV morphine for breakthrough pain. -PT consulted for evaluation, recommend PT at rehab. -Hip precautions per orthopedic recommendations. -Per Ortho can DC on Xarelto for DVT prophylaxis. -Toe-touch weightbearing to right lower extremity. -Follow-up as outpatient in 2 weeks. Warnicke's encephalopathy -history of alcoholism -Possibly related to be vitamin absorption deficiency from GI or robbie imbalance -Continue multivitamin daily, thiamine Dementia -Secondary to decline from Warnicke's encephalopathy -Continue donepezil 10 mg daily DVT prophylaxisLovenox Discussed Condition With: Patient, RN and disease case manager rn. Discharge Planning: to choose rehab center for DC tomorrow.
[2018-04-16 09:12] LABS: Hematocrit 35.7 % (35.0-46.0); Hemoglobin 12.4 gm/dL (11.6-15.3)
[2018-04-16] MEDS: Acetaminophen 325 MG Tablet PO PRN ×3 (09:59→20:49)
[2018-04-16] MEDS: Enoxaparin Inj 40 MG/0.4 ML Syringe SQ SCH (09:59)
[2018-04-17] MEDS: Enoxaparin Inj 40 MG/0.4 ML Syringe SQ SCH ×2 (07:54→18:43)
--- NOTE | 2018-04-17 08:37 | P.PNOP ---
Subjective Interval history: Doing well, pain is controlled. No new issues. Physical Exam Vital signs: Vital Signs 04/16/18 12:22 04/16/18 16:10 04/16/18 20:03 Temperature 98.1 F 98 F 98.0 F Pulse Rate 72 80 70 Respiratory Rate 18 18 16 Blood Pressure 111/55 L 103/54 L 116/61 Pulse Oximetry 98 98 95 04/17/18 00:20 04/17/18 07:53 Temperature 97.6 F 98.2 F Pulse Rate 70 81 Respiratory Rate 18 16 Blood Pressure 121/76 120/66 Pulse Oximetry 94 L 97 Intake & Output 04/16/18 04/17/18 04/17/18 18:59 06:59 18:59 Intake Total 50 / 50 1560 / 1560 Balance 50 / 50 1560 / 1560 Weight 61.8 kg Intake: IV 50 / 50 Ancef 1 GM Premix Inj 1 gm In 50 / 50 50 ml @ 100 mls/hr IV.SIG Q8H CIARA Rx#:[id number] Oral 1560 / 1560 Other: # Voids 1 2 Date of Last Bowel Movement 04/14/18 04/17/18 # Bowel Movements 1 Narrative: right hip dressing c/d/i, 2+DP, +EHL/FHL/PF/DF, SILT Results - Labs CBC & Chem 7: 04/16/18 08:58 04/15/18 08:04 Laboratory Results - last 24 hr 04/16/18 08:58 Hgb 12.4 Hct 35.7 Assessment and Plan - Assessment and Plan 68-year-old female with closed impacted right subcapital femoral neck fracture, postop day 2 status post ORIF right hip 1. Toe-touch weightbearing right lower extremity 2. Physical therapy for mobilization 3. Lovenox for DVT prophylaxis while inpatient. May switch to Xarelto for 3 weeks upon discharge 4. Okay to start dressing changes on postop day 2. 5. Follow-up in clinic in [address] Fraga. Derian for discharge from orthopedic standpoint.
--- NOTE | 2018-04-17 09:39 | P.DS ---
Date of admission: 04/14/18 16:50 Primary care physician: Tonya Ruiz MD Attending physician on discharge: Venkata Ortiz Anticipated date of discharge: 04/17/18 Brief History from admission: 68-year-old female with history of Warnicke's encephalopathy and dementia. She fell approximately 1 week ago and had a difficult time getting up from a seated position following that. She has had pain in her right hip but was able to ambulate with the assistance of her walker, using a walker at baseline anyway. Her pain became increasingly worse in her disability became more prominent. Her brought her in for evaluation of her hip, x-ray here reveals that she has a fracture of her right hip. Orthopedics was made aware and plans to take her to the OR for repair. Her denies that she ever had any history of alcoholism, the Warnicke's encephalopathy is the best fitting diagnosis based on multiple visits with multiple neurologist. The etiology of how that occurred is unclear but it does contribute to her dementia. She was given donepezil by her neurologist to address the dementia. She has no complaints of fever, no cough, no urinary tract symptoms, no nausea, vomiting, or diarrhea. DS: Medications - Discharge Medications Prescriptions: hydrocodone-acetaminophen 1 tab PO Q6H PRN #12 tab PRN Reason: pain 2-10 multivitamin with folic acid [Thera] 1 tab PO DAILY #30 tab rivaroxaban [Xarelto] 10 mg PO DAILY #21 tab thiamine HCl (vitamin B1) 100 mg PO BID #30 tab DS: Summary Hospital Course: 68-year-old female with past medical history significant for Warnicke's encephalopathy and dementia who presented to the emergency department on 04/14 due to right hip pain with a history of a fall 1 week prior. X-ray revealed fracture of right hip. Orthopedic services was consulted and patient underwent percutaneous fixation of right hip femoral neck by Dr. Fraga on 04/15. Following surgery her H&H remained stable. Orthopedic services recommended toe- touch weightbearing to right lower extremity, DVT prophylaxis with Lovenox while inpatient. Recommendations to switch over to Xarelto on discharge. Change dressing on postop day 2 and follow-up with orthopedic services in 2 weeks. Patient was seen and evaluated physical therapy who recommended therapy at rehab. Cleared orthopedically for discharge. She is seen and examined sitting up in bed in no acute distress. Denies any fevers, chills, nausea, vomiting or diarrhea. Reports pain is well controlled, no issues reported by nursing staff. E-force checked, prescription for [place] printed. - Time Spent with Patient Total time spent providing and/or coordinating discharge services: Greater than 30 minutes - Quality: VTE Deep Vein Thrombosis/Pulmonary Embolism Present on Admission: No Exam Vital signs: Vital Signs 04/16/18 12:22 04/16/18 16:10 04/16/18 20:03 Temperature 98.1 F 98 F 98.0 F Pulse Rate 72 80 70 Respiratory Rate 18 18 16 Blood Pressure 111/55 L 103/54 L 116/61 Pulse Oximetry 98 98 95 04/17/18 00:20 04/17/18 07:53 Temperature 97.6 F 98.2 F Pulse Rate 70 81 Respiratory Rate 18 16 Blood Pressure 121/76 120/66 Pulse Oximetry 94 L 97 Intake & Output 04/16/18 04/17/18 04/17/18 18:59 06:59 18:59 Intake Total 50 / 50 1560 / 1560 Balance 50 / 50 1560 / 1560 Weight 61.8 kg Intake: IV 50 / 50 Ancef 1 GM Premix Inj 1 gm In 50 / 50 50 ml @ 100 mls/hr IV.SIG Q8H [facility]ARA Rx#:[id number] Oral 1560 / 1560 Other: # Voids 1 2 Date of Last Bowel Movement 04/14/18 04/17/18 # Bowel Movements 1 Narrative: GENERAL: Well-developed, well-nourished female sitting up in bed in no acute distress. SKIN: Warm and dry. HEAD: Atraumatic. Normocephalic. EYES: Pupils equal and round. No scleral icterus. No injection or drainage. ENT: No nasal bleeding or discharge. Mucous membranes pink and moist. NECK: Trachea midline. CARDIOVASCULAR: Regular rate and rhythm. RESPIRATORY: No accessory muscle use. Clear to auscultation. Breath sounds equal bilaterally. GASTROINTESTINAL: Abdomen soft, non-tender, nondistended. + Bowel sounds MUSCULOSKELETAL: Extremities without clubbing, cyanosis, or edema. No obvious deformities. Right hip dressing dry and intact. Right pedal pulse present, foot warm, positive sensation and movement. NEUROLOGICAL: Awake, alert, oriented x1. No obvious cranial nerve deficits. Motor grossly within normal limits. Normal speech. PSYCHIATRIC: poor insight and judgment. Results Procedures completed during hospitalization: Date of procedure: 04/15/18 Procedure: Percutaneous fixation right femoral neck fracture Implants: Synthes 7.3mm cannulated screws Anesthesia: GETA Surgeon: Jade Fraga MD Estimated blood loss (mL): 10 - Impressions ITS Impressions Hip CT 04/14/18 00:00 CONCLUSION: 1. Impacted subcapital right femoral neck fracture. 2. 2.7 cm right adnexal cystic lesion, likely ovarian in etiology. This can be further evaluated with ultrasound on an outpatient basis as clinically appropriate. Chest X-Ray 04/14/18 15:14 CONCLUSION: No significant change compared to 07/21/2016. Hip X-Ray 04/15/18 00:00 CONCLUSION: Successful ORIF. Discharge Plan - Discharge Disposition Patient Disposition: 03 Discharge to SNF - Discharge Condition Condition: Good - Discharge Order Discharge Orders: Discharge Order (Routine); Ordered 04/17/18 Ordered By: Deonna Hsieh Orthopedic Clear for Discharge (Routine); Ordered 04/16/18 Ordered By: Jade Fraga - Physicians Team Primary Care Provider: Tonya Ruiz Attending Provider: Venkata Ortiz Other Providers: Jade Fraga MD
[2018-04-18] MEDS: Enoxaparin Inj 40 MG/0.4 ML Syringe SQ SCH (08:18)
--- NOTE | 2018-04-18 09:32 | P.PN ---
Subjective Interval history: Follow-up visit for right femur fracture and dementia. Patient is seen and examined sitting up in bed in no acute distress. Denies any fevers, chills, nausea, vomiting or diarrhea. Moving her bowels, denies any pain or discomfort at the moment. Physical Exam Vital signs: Vital Signs 04/17/18 11:28 04/17/18 16:00 04/17/18 20:05 Temperature 97 F L 97.7 F 97.5 F L Pulse Rate 72 70 83 Respiratory Rate 18 18 18 Blood Pressure 111/53 L 117/56 L 113/57 L Pulse Oximetry 95 95 95 04/17/18 22:58 04/18/18 08:14 Temperature 97.9 F 98 F Pulse Rate 75 76 Respiratory Rate 17 17 Blood Pressure 105/58 L 113/61 Pulse Oximetry 96 96 Intake & Output 04/17/18 04/18/18 04/18/18 18:59 06:59 18:59 Intake Total 1200 / 1200 Balance 1200 / 1200 Intake: Oral 1200 / 1200 Other: # Voids 5 Date of Last Bowel Movement 04/17/18 04/17/18 # Bowel Movements 1 Narrative: GENERAL: Well-developed, well-nourished female sitting up in bed in no acute distress. SKIN: Warm and dry. HEAD: Atraumatic. Normocephalic. EYES: Pupils equal and round. No scleral icterus. No injection or drainage. ENT: No nasal bleeding or discharge. Mucous membranes pink and moist. NECK: Trachea midline. CARDIOVASCULAR: Regular rate and rhythm. RESPIRATORY: No accessory muscle use. Clear to auscultation. Breath sounds equal bilaterally. GASTROINTESTINAL: Abdomen soft, non-tender, nondistended. + Bowel sounds MUSCULOSKELETAL: Extremities without clubbing, cyanosis, or edema. No obvious deformities. Right hip dressing dry and intact. Right pedal pulse present, foot warm, positive sensation and movement. NEUROLOGICAL: Awake, alert, oriented x1. No obvious cranial nerve deficits. Motor grossly within normal limits. Normal speech. PSYCHIATRIC: poor insight and judgment. Results - Labs CBC & Chem 7: 04/16/18 08:58 04/15/18 08:04 - Procedures Date of procedure: 04/15/18 Procedure: Percutaneous fixation right femoral neck fracture Implants: Synthes 7.3mm cannulated screws Anesthesia: GETA Surgeon: Jade Fraga MD Estimated blood loss (mL): 10 Assessment and Plan - Plan Right hip fracture Right subcapital femoral neck fracture -Orthotic consulted. Underwent percutaneous fixation of right femur neck fracture 04/[address] Sevilla -Pain control with cb Littlejohn -PT consulted for evaluation, recommend PT at rehab. -Hip precautions per orthopedic recommendations. -Per Ortho can DC on Xarelto for DVT prophylaxis. -Toe-touch weightbearing to right lower extremity. -Follow-up as outpatient in 2 weeks. Warnicke's encephalopathy -history of alcoholism -Possibly related to be vitamin absorption deficiency from GI or robbie imbalance -Continue multivitamin daily, thiamine Dementia -Secondary to decline from Warnicke's encephalopathy -Continue donepezil 10 mg daily DVT prophylaxisLovenox Discussed Condition With: Patient and adult protective caseworker. Discharge Planning: Plans for discharge to rehab today.
== END 2018-04-18 15:17 ==
LOC: NEPB 12:50 → NEDA 16:50 → N06 18:59
PROVIDERS: ADMIT Internal Medicine; ATTEND Internal Medicine

== ENCOUNTER 2018-06-06 05:25 | Inpatient (IN) ==
[2018-06-06] MEDS ORDERED: Famotidine PF Inj 20 MG/2 ML Vial IV.PUSH PRN (05:58)
[2018-06-06] MEDS ORDERED: Dexamethasone Inj 20 MG/5 ML Vial IV.PUSH PRN (05:59)
[2018-06-06] MEDS ORDERED: ceFAZolin 2 GM Premix Inj 2 GM/50 ML PIGGYBACK IV.SIG SCH (06:00)
[2018-06-06] MEDS ORDERED: Chlorhexidine 4% Topical 120 APPLIC/120 ML Bottle TOPICAL SCH (06:00)
[2018-06-06] MEDS ORDERED: Sodium Chlor 0.9% Inj 40 ML, Bupivacaine Liposo PF 1.3% Inj 20 ML, Bupivacaine/Epi PF 0... P-ARTICULR SCH ×3 (06:00)
[2018-06-06] MEDS ORDERED: SODIUM CHLOR 0.9% IV.SIG SCH (06:00)
[2018-06-06] MEDS ORDERED: TRANEXAMIC ACID IV.SIG SCH (06:00)
[2018-06-06] MEDS ORDERED: Celecoxib 200 MG Capsule PO ONE (06:00)
[2018-06-06] MEDS ORDERED: Vancomycin Inj 1,000 MG in Sodium Chlor 0.9% Inj 250 ML IV.SIG SCH (06:00)
[2018-06-06] MEDS ORDERED: Gabapentin 300 MG Capsule PO ONE (06:00)
[2018-06-06] MEDS ORDERED: Metoprolol Tartrate 25 MG Tablet PO ONE (06:11)
[2018-06-06] MEDS ORDERED: Chlorhexidine Gluconate 2% 1 Pack (2 Cloths) TOPICAL ONE (06:11)
[2018-06-06] MEDS ORDERED: Dexamethasone PF Inj 10 MG/ML Vial ONE (06:25)
[2018-06-06 06:30] LABS: Baso % (Auto) 0.5 % (0.0-2.0); Eos # (Auto) 0.2 th/mm3 (0.0-0.4); Eos % (Auto) 2.3 % (0.0-4.0); Hematocrit 39.2 % (35.0-46.0); Hemoglobin 13.2 gm/dL (11.6-15.3); Lymph # (Auto) 1.6 th/mm3 (1.0-4.8); Lymph % (Auto) 18.3 % (9.0-44.0); Mean Corpuscular HGB Conc 33.7 % (32.0-36.0); Mean Corpuscular Volume 92.1 fL (80.0-100.0); Mean Platelet Volume 7.6 fL (7.0-11.0); Mono # (Auto) 0.8 th/mm3 (0.0-0.9); Mono % (Auto) 8.7 % (0.0-8.0); Neut # (Auto) 6.2 th/mm3 (1.8-7.7); Neut % (Auto) 70.2 % (16.0-70.0); Platelet Count 329 th/mm3 (150-450); Red Blood Count 4.26 mil/mm3 (4.00-5.30); Red Cell Distribution Width 13.9 % (11.6-17.2); White Blood Count 8.8 th/mm3 (4.0-11.0)
[2018-06-06] MEDS ORDERED: Sodium Chlor 0.9% Inj 500 ML IV.SIG SCH (07:00)
[2018-06-06] MEDS ORDERED: Neostigmine Inj 5 MG/5 ML Syringe IV.PUSH ONE (07:14)
[2018-06-06] MEDS ORDERED: Glycopyrrolate Inj 1 MG/5 ML Syringe IV.PUSH ONE (07:14)
[2018-06-06] MEDS ORDERED: Phenylephrine/NS 1000 MCG/10ML Syringe IV.PUSH ONE (07:14)
[2018-06-06] MEDS ORDERED: Lidocaine PF 1% Inj 5 ML Syringe OTHER ONE (07:14)
[2018-06-06] MEDS ORDERED: Post-op Orders (for Pharmacy) OTHER STA (08:53)
[2018-06-06] MEDS ORDERED: Morphine Inj 4 MG/ML Vial IV.PUSH PRN (08:53)
--- NOTE | 2018-06-06 08:58 | P.OP ---
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 My P.A. presence was necessary throughout this case for the manipulation and positioning of the surgical extremity. My P.A. was assisting me throughout the duration of this procedure. The skill set of a physician assistant vice president was medically necessary to complete this procedure. During the surgical case the surgical services manager was working at the back table and the physician assistant vice president was directly assisting me. Operation and Findings: PLAN OF ACTIVITY Weight bear as tolerated. IMPLANTS USED DePuy cemented [place] size [4] stem with size [48] bipolar head and [standard] neck. DETAILS OF PROCEDURE This patient was brought into the operating room and placed on the OR table. The patient was given anesthesia. The patient received IV antibiotics. The patient was then placed in lateral decubitus position. The hip and leg were prepped with alcohol, followed by Hibiclens and draped in a usual sterile fashion. Clean air was used for this procedure. Time out procedure was performed. The procedure began with a 5 inch incision over the posterolateral hip. The subcutaneous tissue was dissected with the Bovie. The iliotibial band were split in line with fibers. The Charnley retractor was placed. At this point attention was turned towards hardware removal. The 3 cannulated screws were identified. Using the appropriate screwdrivers each of the 3 screws was now removed. The hip joint and fracture were now exposed. The piriformis and external rotators were released from the femur and tagged with a #1 Vicryl suture. The capsule is now incised and tagged with #1 Vicryl. The femoral neck fracture was now visualized. A corkscrew was now used to remove the femoral head. The femoral head was sized and measured. Soft tissue was now protected. The hip skid was placed underneath the femoral neck. An oscillating saw was used to make a femoral neck cut. At this point attention was turned to preparation of the proximal femur. A box osteotome was used to remove the lateral cortex of the femoral neck. The T- handle reamer was used to open the femoral canal. The canal was now reamed. Next , the canal was broached up to appropriate size. A lateralizing reamer was used to help lateralize the prosthesis. At this point a trial head and neck were placed. The hip was reduced. The patient was found to have excellent stability with good range of motion. Trial components were removed. Soft tissue and bone were thoroughly irrigated. The summit stem was now opened. Cement was mixed with vancomycin powder. Cement was pressurized into the femoral canal. The stem was now placed into the proximal femur. Care was taken to keep appropriate anteversion. excess cement was removed. After cement was set, the head and neck were now impacted onto the stem. The hip was again reduced. The hip was found to have good range of motion and good stability. Leg lengths were clinically equal. The wound was thoroughly irrigated. The capsule, piriformis and iliotibial band were closed with #1 Vicryl. Subcutaneous tissue was closed with 3-0 Vicryl. The skin was closed with tsering. A sterile dressing was applied. The patient was placed into a knee immobilizer. The patient was awakened and transferred to the recovery room in stable condition. Needle and sponge counts were correct.
[2018-06-06] MEDS ORDERED: ceFAZolin Inj 2,000 MG in Sodium Chlor 0.9% Inj 80 ML IV.SIG SCH (09:00)
[2018-06-06] MEDS ORDERED: *Meperidine Inj 25 MG/ML Vial PERIprocedural Use ONLY ONE (09:06)
[2018-06-06] MEDS ORDERED: *Ondansetron Inj 4 MG/2 ML Vial PERIprocedural Use ONLY ONE (09:06)
[2018-06-06] MEDS ORDERED: fentaNYL Citrate Inj 100 MCG/2 ML Ampul ONE (09:08)
[2018-06-06] MEDS: Calcium/Vitamin D 250/125 MG Tablet PO SCH ×3 (09:33→18:04)
[2018-06-06] MEDS: Senna/Docusate Sodium 8.6/50 MG Tablet PO SCH ×2 (09:34→20:04)
[2018-06-06] MEDS ORDERED: *morphine SULFATE 4 MG/ML PERIprocedure ONLY ONE (09:48)
--- NOTE | 2018-06-06 11:25 | XR ---
EXAM DATE: 06/06/2018 10:44 AM EST AGE/SEX: 68 years / Female INDICATIONS: Post op right hip surgery. CLINICAL DATA: This is the patient's initial encounter. Patient reports that signs and symptoms have been present for 1 day and indicates a pain score of Nonresponsive. MEDICAL/SURGICAL HISTORY: None. None. COMPARISON: [facility] [place], HIP RIGHT W AP PELVIS 2V, 04/14/2018. . FINDINGS: Multiple views of the right hip were obtained as well as an AP view of the pelvis. This demonstrates that the patient is status post right hip arthroplasty. The femoral and acetabular components are int act. There is overlying soft tissue swelling and surgical skin tsering. There is mild osteopenia. CONCLUSION: Expected postoperative changes status post right hip arthroplasty. Electronically signed by: Rell Cabello MD Board Certified Radiologist 06/06/2018 11:23 AM EST
[2018-06-06] MEDS: ceFAZolin 2 GM Premix Inj 2 GM/50 ML PIGGYBACK IV.SIG SCH ×2 (18:04→23:21)
[2018-06-07 05:08] LABS: Hematocrit 31.9 % (35.0-46.0); Hemoglobin 10.8 gm/dL (11.6-15.3)
--- NOTE | 2018-06-07 06:43 | P.PNOP ---
Subjective Interval history: POD 1 s/p conversion to right hip hemiarthroplasty doing well. reports no pain. states has not been out of bed yet Physical Exam Vital signs: Vital Signs 06/06/18 08:57 06/06/18 09:00 06/06/18 09:15 Temperature 97.4 F L Pulse Rate 104 H 100 H 91 H Respiratory Rate 25 H 21 20 Blood Pressure 138/84 135/79 135/81 Pulse Oximetry 100 100 96 06/06/18 09:30 06/06/18 09:40 06/06/18 09:45 Temperature Pulse Rate 85 79 Respiratory Rate 23 21 Blood Pressure 131/65 137/63 Pulse Oximetry 95 95 96 06/06/18 10:00 06/06/18 10:30 06/06/18 11:00 Temperature Pulse Rate 87 75 69 Respiratory Rate 18 20 15 Blood Pressure 127/60 127/60 122/60 Pulse Oximetry 98 100 100 06/06/18 12:00 06/06/18 16:00 06/06/18 19:10 Temperature 97.6 F 97.8 F 97.8 F Pulse Rate 62 74 73 Respiratory Rate 17 18 19 Blood Pressure 107/59 L 105/54 L 103/59 L Pulse Oximetry 100 97 95 06/06/18 19:11 06/06/18 23:55 06/07/18 04:05 Temperature 97.7 F 97.9 F 97.7 F Pulse Rate 94 H 70 77 Respiratory Rate 18 18 17 Blood Pressure 135/65 111/55 L 109/51 L Pulse Oximetry 94 L 96 96 Intake & Output 06/06/18 06/06/18 06/07/18 06:59 18:59 06:59 Intake Total 2038.85 / 2038.85 1430 / 1430 Output Total 100 / 100 Balance 1938.85 / 1938.85 1430 / 1430 Weight 59 kg 67.3 kg Intake: IV 358.85 / 358.85 1100 / 1100 LR 1000 mL Inj 1,000 ML @ 50 1000 / 1000 mls/hr IV.CONT .Q20H CIARA Rx#: [id number] Cyklokapron Inj 885 MG In NS 108.85 / 108.85 Inj 100 ML @ 200 mls/hr IV.SIG ONCE CIARA Rx#:[id number] Vancomycin Inj 1,000 MG In NS 250 / 250 Inj 250 ML @ 250 mls/hr IV.SIG CHAIN PEGGER CIARA Rx#:[id number] Ancef 2 GM Premix Inj 2 gm In 100 / 100 50 ml @ 100 mls/hr IV.SIG Q8H CIARA Rx#:[id number] Oral 480 / 480 330 / 330 Anesthesia Amount 1200 / 1200 Output: Estimated Blood Loss 100 / 100 Other: # Voids 1 2 Date of Last Bowel Movement 06/05/18 # Bowel Movements 0 0 Weight On Admission 59 kg Narrative: RLE: dressing clean and dry. intact. NVI. +CKS Results - Labs CBC & Chem 7: 06/07/18 04:13 Laboratory Results - last 24 hr 06/06/18 06/06/18 06/07/18 06:15 09:02 04:13 Hgb 10.8 L D Hct 31.9 L POC Glucose 133 H Blood Type O Positive Blood Type Recheck Required Antibody Screen Negative - Imaging Impressions Hip X-Ray 06/06/18 08:53 CONCLUSION: Expected postoperative changes status post right hip arthroplasty. Assessment and Plan - Assessment and Plan 1) Right Hip Hemiarthroplasty - POD 1 -WBAT -posterior hip precautions -knee brace while in bed -maintain surgical dressing x 6 days. begin daily dressing changes POD 7 with primapore -plan for home with [facility] if doing well with therapy -DVT prophylaxis -f/u with Juanpablo or DARIAN in 2 weeks
[2018-06-07] MEDS: Enoxaparin Inj 30 MG/0.3 ML Syringe SQ SCH (08:11)
[2018-06-07] MEDS: Senna/Docusate Sodium 8.6/50 MG Tablet PO SCH ×2 (08:11→20:25)
[2018-06-07] MEDS: Calcium/Vitamin D 250/125 MG Tablet PO SCH ×3 (08:11→17:28)
[2018-06-07] MEDS: ceFAZolin 2 GM Premix Inj 2 GM/50 ML PIGGYBACK IV.SIG SCH (08:11)
--- NOTE | 2018-06-08 06:38 | P.PNOP ---
Subjective Interval history: POD 2 s/p right hip hemiarthroplasty patient does not answer questions well. nods at times, but difficult to get answers as to how her hip feels or if she has been out of bed Physical Exam Vital signs: Vital Signs 06/07/18 08:00 06/07/18 12:00 06/07/18 16:00 Temperature 97.9 F 97.8 F 98.4 F Pulse Rate 69 74 73 Respiratory Rate 21 21 21 Blood Pressure 113/66 105/52 L 119/62 Pulse Oximetry 97 96 96 06/07/18 19:00 06/08/18 00:10 Temperature 98.6 F 97.6 F Pulse Rate 76 68 Respiratory Rate 19 18 Blood Pressure 104/52 L 107/57 L Pulse Oximetry 95 95 Intake & Output 06/07/18 06/07/18 06/08/18 06:59 18:59 06:59 Intake Total 1430 / 1430 2210 / 2210 180 / 180 Balance 1430 / 1430 2210 / 2210 180 / 180 Weight 67.3 kg 67.2 kg Intake: IV 1100 / 1100 1250 / 1250 LR 1000 mL Inj 1,000 ML @ 50 1000 / 1000 600 / 600 mls/hr IV.CONT .Q20H CIARA Rx#: [id number] LR 1000 mL Inj 1,000 ML @ 30 600 / 600 mls/hr IV.SIG .Q24H CIARA Rx#: [id number] Ancef 2 GM Premix Inj 2 gm In 100 / 100 50 / 50 50 ml @ 100 mls/hr IV.SIG Q8H CIARA Rx#:[id number] Oral 330 / 330 960 / 960 180 / 180 Other: # Voids 2 5 8 Date of Last Bowel Movement 06/05/18 06/05/18 06/05/18 # Bowel Movements 0 0 0 Narrative: RLE: dressings clean and dry. intact. +CKS. nvi Results - Labs CBC & Chem 7: 06/07/18 04:13 Assessment and Plan - Assessment and Plan 1) Right Hip Hemiarthroplasty - POD 2 -WBAT -posterior hip precautions -knee brace while in bed -maintain surgical dressing x 6 days. begin daily dressing changes POD 7 with primapore -patient will likely require SNF placement. CM to help arrange -DVT prophylaxis -f/u with Juanpablo or [facility]ARIAN in 2 weeks [facility] Prescription Drug Monitoring Database has been queried and verified prior to prescribing the controlled substance. Acute pain exception. This patient has normal, predicted, physiological, and time limited response to an adverse mechanical stimulus associated with surgery, trauma, or acute illness as described in my notes. There is a lack of alternative treatment options other than to include the prescribed narcotic treatment for this condition.
[2018-06-08] MEDS: Calcium/Vitamin D 250/125 MG Tablet PO SCH ×3 (08:34→18:10)
[2018-06-08] MEDS: Senna/Docusate Sodium 8.6/50 MG Tablet PO SCH ×2 (08:35→20:44)
[2018-06-08] MEDS: Enoxaparin Inj 30 MG/0.3 ML Syringe SQ SCH (08:35)
--- NOTE | 2018-06-09 07:02 | P.PNOP ---
Subjective Interval history: POd 3 s/p right hip hemiarthroplasty doing well. pain controlled. states that ambulating with assistance. Physical Exam Vital signs: Vital Signs 06/08/18 08:00 06/08/18 12:00 06/08/18 16:00 Temperature 97.4 F L 98.8 F 98.0 F Pulse Rate 83 87 84 Respiratory Rate 18 18 18 Blood Pressure 109/61 112/61 119/56 L Pulse Oximetry 94 L 95 95 06/08/18 19:53 06/08/18 23:48 Temperature 98.5 F 98.7 F Pulse Rate 85 78 Respiratory Rate 18 17 Blood Pressure 121/58 L 103/59 L Pulse Oximetry 96 98 Intake & Output 06/08/18 06/09/18 06/09/18 18:59 06:59 18:59 Intake Total 360 / 360 Output Total 100 / 100 Balance 260 / 260 Weight 61.4 kg Intake: Oral 360 / 360 Output: Urine 100 / 100 Other: # Voids 4 4 Date of Last Bowel Movement 06/05/18 06/08/18 # Bowel Movements 1 Narrative: RLE: dressings clean and dry. intact. +CKS. nvi Results - Labs CBC & Chem 7: 06/07/18 04:13 Assessment and Plan - Assessment and Plan 1) Right Hip Hemiarthroplasty - POD 3 -WBAT -posterior hip precautions -knee brace while in bed -maintain surgical dressing x 6 days. begin daily dressing changes POD 7 with primapore -patient will likely require SNF placement. CM to help arrange -DVT prophylaxis -f/u with [facility] in 2 weeks -Had a message from the nursing staff yesterday that the patient and the family have decided against a rehab facility. Had a long discussion with the patient today that I thought that this was a mistake. I think that due to her inability to ambulate in the assistance that she requires, she would benefit greatly from discharge to a rehab facility for a short-term stay. I think that she is a danger to herself if she were to go home at this point and would be a high fall risk. The patient seemed to understand this and agreed with this plan. We will plan on discharge to rehab today. [facility] Prescription Drug Monitoring Database has been queried and verified prior to prescribing the controlled substance. Acute pain exception. This patient has normal, predicted, physiological, and time limited response to an adverse mechanical stimulus associated with surgery, trauma, or acute illness as described in my notes. There is a lack of alternative treatment options other than to include the prescribed narcotic treatment for this condition.
[2018-06-09] MEDS: Senna/Docusate Sodium 8.6/50 MG Tablet PO SCH ×2 (08:52→20:06)
[2018-06-09] MEDS: Enoxaparin Inj 30 MG/0.3 ML Syringe SQ SCH (08:52)
[2018-06-09] MEDS: Calcium/Vitamin D 250/125 MG Tablet PO SCH ×3 (08:52→18:32)
--- NOTE | 2018-06-09 14:49 | P.DCO ---
- Physical Therapy Physical Therapy: Gait training, Safety evaluation Hip: Total hip, Protocol: Right, Posterior hip precautions Canvas Knee Splint: Other (only while in bed) Right Lower Extremity Weight Bearing: Weight bearing as tolerated - Nursing Dressing changes: Do not change dressing, Daily dressing change (begin daily dressing changes on POD 7 with primapore dressing) - Case Management Consult Case Management Consult-Home Health: Yes - Certification Need for Home Health services: I have seen patient Maddy Infante on 06/09/18. My clinical findings support the need for the requested home health care services because: Need for Home Health Services: Limited mobility due to disease progression Homebound Certification: I certify that my clinical findings support that this patient is homebound because: Homebound Certification: Post-op weakness
[2018-06-10] MEDS: Enoxaparin Inj 30 MG/0.3 ML Syringe SQ SCH (09:26)
[2018-06-10] MEDS: Senna/Docusate Sodium 8.6/50 MG Tablet PO SCH (09:27)
[2018-06-10] MEDS: Calcium/Vitamin D 250/125 MG Tablet PO SCH (09:27)
== END 2018-06-10 10:25 | disposition home health service (06) | DRG 470 ==
LOC: HSDI 05:25 → N06 12:23
PROVIDERS: ADMIT Orthopaedic Surgery Orthopaedic Trauma; ATTEND Orthopaedic Surgery Orthopaedic Trauma
CPT/HCPCS: 73502; 82948; 82962; 85014; 85018; 85025; 86850; 86900; 86901; 94150; 97110; 97162; 97530; C1776; J0131; J0690; J1100; J1580; J1650; J2175; J2270; J2370; J2405; J2704; J2710; J3010; J3370; J7050; J7120; L1830